=== PATIENT | female | born 1990 | race Caucasian/White ===

== ENCOUNTER 2016-08-27 01:27 | Emergency (ER) | payer OTHER ==
[~2016-08-27] VITALS: Ht 144.8 cm; Wt 52.4 kg
[~2016-08-27 01:27] MED LIST: PRENTAB26 PO
[2016-08-27 01:31] VITALS: Ht 144.8 cm; Wt 52.4 kg
--- NOTE | 2016-08-27 01:48 | EMERGENCY ROOM VISIT NOTE ---
History Report prepared by Vamshiibterri: Wyatt Oneal Under the Supervision of: Dr. Mayur Denny D.O. First contact with patient: 01:35 Chief Complaint: ED VAG BLEEDING Stated Complaint: HEMMORAGING-POST History of Present Illness The patient is a 25 year old female who presents to the Emergency Room with complaints of constant vaginal bleeding beginning today. She gave vaginally three months ago. She does not believe that she is . The patient also complains of intermittent abdominal cramping and headaches. She has been three times and has had three successful vaginal births. She was told that she had some hemorrhaging following her first and was told that she was high risk for similar bleeding. The patient denies any fevers. Source of History: patient Onset: Today Position: other (vagina) Quality: other (bleeding) Associated Symptoms: + abdominal pain, + headache, No fevers Review of Systems See HPI for pertinent positives and negatives. A total of ten systems were reviewed and were otherwise negative. Past Medical & Surgical Medical Problems: (1) ASTHMA, UNSPECIFIED, W (ACUTE) EXACERBATION (2) Precipitous delivery, delivered (current hospitalization) (3) labor (4) labor in third trimester Surgical Problems: (1) Previous section Family History No pertinent family history stated. Social History Smoking Status: Current Every Day Smoker Alcohol Use: occasionally Drug Use: none Marital Status: single Occupation Status: unemployed Current/Historical Medications Scheduled Multivit/Min/Iron/Fol Ac/Pren ( Vitamin), 1 TAB PO DAILY Allergies Coded Allergies: Sulfa Antibiotics (Verified Allergy, Unknown, Unknown reaction, 06/06/16) Physical Exam Vital Signs Date Time Temp Pulse Resp B/P Pulse Ox O2 Delivery O2 Flow Rate FiO2 08/27/16 01:31 100 18 147/78 98 Room Air Physical Exam GENERAL: Awake, alert, well-appearing, in no distress HENT: Normocephalic, atraumatic. Oropharynx unremarkable. EYES: Normal conjunctiva. Sclera non-icteric. NECK: Supple. No nuchal rigidity. FROM. No JVD. RESPIRATORY: Clear to auscultation. CARDIAC: Regular rate, normal rhythm. Extremities warm and well perfused. Pulses equal. ABDOMEN: Soft, non-distended. No tenderness to palpation. No rebound or guarding. No masses. RECTAL: Deferred. MUSCULOSKELETAL: Chest examination reveals no tenderness. The back is symmetrical on inspection without obvious abnormality. There is no CVA tenderness to palpation. No joint edema. LOWER EXTREMITIES: Calves are equal size bilaterally and non-tender. No edema. No discoloration. NEURO: Normal sensorium. No sensory or motor deficits noted. SKIN: No rash or jaundice noted. Medical Decision & Procedures Laboratory Results Test 08/27/16 00:45 Urine Test NEG (NEG) ED Course 0138: The patient was evaluated in room A10. A complete history and physical exam was performed. Medical Decision Differential diagnosis: Etiologies such as ectopic , dysfunction uterine bleeding, bleeding dyscrasia, trauma, infection, as well as others were entertained. Patient's test is negative. I suspect that this is menstrual cramps. Discussed ordered with the patient bedside will treated with nonsteroidal anti -inflammatories. Scribe Attestation The scribe's documentation has been prepared under my direction and personally reviewed by me in its entirety. I confirm that the note above accurately reflects all work, treatment, procedures, and medical decision making performed by me. Departure Information Dispostion Home / Self-Care Prescriptions Ibuprofen (Motrin) 800 Mg Tab 800 MG PO Q8H Y for Pain for 5 Days, TAB Prov: Mayur Denny, DO 08/27/16 Referrals Lali Izquierdo,Xavier.OMarietta (PCP) Patient Instructions ED Cramping Menstrual, My [facility] Additional Instructions Follow-up with her own [facility]. Take Motrin for pain and return for worsening of bleeding
[2016-08-27] MEDS ORDERED: KETOROLAC TROMETHAMINE 60 MG/2 ML VIAL IM STA (02:24)
[2016-08-27] MEDS ORDERED: IBUP-1428 PO (02:29)
[2016-08-27 02:35] VITALS: BP 142/68; PULSE 70; O2SAT 99
[2016-08-27] MEDS ORDERED: ESCI1TAB6 PO (02:37)
[2016-08-27] MEDS ORDERED: SERT50TA PO (02:37)
[2016-08-27] MEDS ORDERED: SERT25TA PO (02:37)
== END 2016-08-27 02:53 | disposition home or self-care (01) ==
LOC: C.EDB 01:28 → C.EDA 02:53
DX: N93.8 Other specified abnormal uterine and vaginal bleeding (principal); J45.909 Unspecified asthma, uncomplicated; F17.200 Nicotine dependence, unspecified, uncomplicated; Z88.2 Allergy status to sulfonamides

== ENCOUNTER 2016-10-13 06:20 | Emergency (ER) | payer OTHER ==
[~2016-10-13] VITALS: Ht 144.8 cm; Wt 50.0 kg
[~2016-10-13 06:20] MED LIST changes: +ESCI1TAB6 PO; -PRENTAB26 PO; +SERT25TA PO
[2016-10-13 06:23] VITALS: Ht 144.8 cm; Wt 50.0 kg
[2016-10-13] MEDS ORDERED: ACETAMINOPHEN 500 MG TAB PO STA (07:15)
--- NOTE | 2016-10-13 07:19 | EMERGENCY ROOM VISIT NOTE ---
History Report prepared by Amada: Louis Pedro Under the Supervision of: Dr. Fely Chin D.O. First contact with patient: 06:45 Chief Complaint: BACK PAIN Stated Complaint: SEVERE BACK PAIN/TROUBLE BREATHING History of Present Illness The patient is a 25 year old female who presents to the Emergency Room with complaints of persistent back pain beginning about 2 days ago. She also complains of chest pain with shortness of breath, and denies any cough. She notes that her pain began in her back. The patient reports having this pain before in the past but did not see a doctor for these symptoms. She states her back pain is relieved when her friend cracks her back. She denies any injury or trauma to her back, or any urinary symptoms. She has not taken anything for her pain. The patient also complains of ongoing abdominal pain, but denies any pain currently. She notes she was here before for this abdominal pain about 1 month ago and "received a shot and was sent home." She locates this abdominal pain "all over" in her stomach and "between her ribs." She notes this abdominal pain has been reoccurring since the initial onset 1 month ago. The patient indicates that she is currently on her period. She admits to previously using meth and was "on a binge", and states she stopped yesterday. She notes she is currently tired from being awake from the meth. She is currently unsure if she wishes to seek rehab for meth use. The patient denies drinking alcohol, but admits to smoking. She reports that she recently gave . Source of History: patient Onset: about 2 days ago Position: back Quality: other (back pain) Timing: other (persistent) Modifying Factors (Relieving): other ("friend cracking back") Associated Symptoms: + SOB, + abdominal pain, + chest pain, + fatigue, No urinary symptoms Review of Systems See HPI for pertinent positives & negatives. A total of 10 systems reviewed and were otherwise negative. Past Medical & Surgical Medical Problems: (1) ASTHMA, UNSPECIFIED, W (ACUTE) EXACERBATION (2) Precipitous delivery, delivered (current hospitalization) (3) labor (4) labor in third trimester Surgical Problems: (1) Previous section Family History No pertinent family history stated. Social History Smoking Status: Never Smoker Smokeless Tobacco Use: No Alcohol Use: none Drug Use: other (meth) Marital Status: single Occupation Status: unemployed Current/Historical Medications Scheduled Escitalopram Oxalate (Lexapro), 5 MG PO DAILY Sertraline (Zoloft), 25 MG PO DAILY Allergies Coded Allergies: Sulfa Antibiotics (Verified Allergy, Unknown, Unknown reaction, 10/13/16) Physical Exam Vital Signs Date Time Temp Pulse Resp B/P Pulse Ox O2 Delivery O2 Flow Rate FiO2 10/13/16 11:55 118 18 124/87 96 Room Air 10/13/16 10:08 36.6 97 20 104/86 98 Room Air 10/13/16 08:38 36.7 118 18 120/86 99 10/13/16 07:30 80 18 96 10/13/16 06:23 36.3 83 18 130/89 94 Room Air Physical Exam HEENT: Head - normocephalic and atraumatic Pupils are equal, round, and reactive to light. Extraocular eye muscles are intact, and sclera are anicteric. Nose - moist nasal mucosa without discharge. Excoriated areas to the bridge of the nose and right cheeks that patient continues to pick at. Mouth - dry buccal mucosa. Oropharynx is nonerythematous and there is no tonsillar exudate or edema noted. Neck: Supple; no JVD, nuchal rigidity, cervical lymphadenopathy. Heart: Regular rate and rhythm. There is a normal S1 and S2 with no murmurs, clicks, or gallops appreciated. Lungs: Clear to auscultation bilaterally with no wheezes, rales, or rhonchi. Abdomen: Soft. Epigastric pain to palpation. Nondistended, with good bowel sounds. There are no palpable pulsatile masses or hepatosplenomegaly. There is no guarding, rigidity, or rebound noted. Extremities: Track nieves in both antecubital fossa. Areas of ecchymosis on both arms. Contusions over the lower legs. There are easily palpable peripheral pulses. Skin: warm and dry with good turgor and no rashes. Multiple tattoos. Medical Decision & Procedures ER Provider Diagnostic Interpretation: Radiology results as stated below per my review and the radiologist's interpretation: CHEST 2 VIEWS ROUTINE FINDINGS: Lung volumes are normal. There is no pneumothorax or pleural effusion. Cardiac size is normal. Mediastinal contours are normal. There is no evidence of pulmonary edema. IMPRESSION: No acute cardiopulmonary findings. Electronically signed by: Sanjiv Rico M.D. 10/13/2016 7:54 AM Dictated Date/Time: 10/13/2016 7:53 AM KUB FINDINGS: Pelvic calcifications likely reflect phleboliths. A few prominent loops of small bowel are noted without convincing evidence for a bowel obstruction. There is a moderate amount of stool within the colon. IMPRESSION: A few prominent loops of small bowel without convincing evidence for a bowel obstruction. Electronically signed by: Sanjiv Rico M.D. 10/13/2016 7:55 AM Dictated Date/Time: 10/13/2016 7:[address] OF THE THORACIC SPINE WITH CONTRAST FINDINGS: Alignment of the thoracic spine is anatomic. Vertebral body heights are maintained. No fracture or suspicious lesion is identified. The central canal and neural foramen are suboptimally assessed by CT. No epidural fluid collection is identified by CT. There is mild disc bulge with osteophyte formation at the T11-T12 level that results in minimal narrowing of the central canal. The neural foramen are patent. Paravertebral soft tissues are unremarkable. No consolidation is identified within visualized portions of the lungs. IMPRESSION: 1. No epidural fluid collection identified by CT. If persistent clinical concern for epidural abscess or discitis, an MRI of the thoracic spine with and without contrast could be obtained given increased sensitivity. 2. No thoracic spine fracture or subluxation. 3. Mild degenerative disc disease at T11-T12 with mild disc bulge. Electronically signed by: Sanjiv Rico M.D. 10/13/2016 11:17 AM Dictated Date/Time: 10/13/2016 11:05 AM Laboratory Results 10/13/16 10:20 Red Blood Count 4.61, Mean Corpuscular Volume 90.5, Mean Corpuscular Hemoglobin 30.4, Mean Corpuscular Hemoglobin Concent 33.6, Mean Platelet Volume 9.2, Neutrophils (%) (Auto) 80.4, Lymphocytes (%) (Auto) 15.3, Monocytes (%) (Auto) 2.8, Eosinophils (%) (Auto) 0.9, Basophils (%) (Auto) 0.3, Neutrophils # (Auto) 14.76, Lymphocytes # (Auto) 2.80, Monocytes # (Auto) 0.52, Eosinophils # (Auto) 0.16, Basophils # (Auto) 0.05 10/13/16 07:27 Test 10/13/16 07:27 10/13/16 09:15 10/13/16 10:20 10/13/16 10:28 Anion Gap 6.0 mmol/L (3-11) Est Creatinine Clear Calc Drug Dose 75.8 ml/min Estimated GFR () 123.3 Estimated GFR (Non- 106.4 BUN/Creatinine Ratio 16.9 (10-20) Calcium Level 10.8 mg/dl (8.5-10.1) Total Bilirubin 0.2 mg/dl (0.2-1) Direct Bilirubin < 0.1 mg/dl (0-0.2) Aspartate Amino Transf (AST/SGOT) 14 U/L (15-37) Alanine Aminotransferase (ALT/SGPT) 68 U/L (12-78) Alkaline Phosphatase 157 U/L (45-117) Troponin I < 0.015 ng/ml (0-0.045) Total Protein 7.8 gm/dl (6.4-8.2) Albumin 4.1 gm/dl (3.4-5.0) Lipase 115 U/L (73-393) Urine Color YELLOW Urine Appearance TURBID (CLEAR) Urine pH 8.0 (4.5-7.5) Urine Specific [place] 1.028 (1.000-1.030) Urine Protein NEG (NEG) Urine Glucose (UA) NEG (NEG) Urine Ketones NEG (NEG) Urine Occult Blood NEG (NEG) Urine Nitrite NEG (NEG) Urine Bilirubin NEG (NEG) Urine Urobilinogen NEG (NEG) Urine Leukocyte Esterase TRACE (NEG) Urine WBC (Auto) 1-5 /hpf (0-5) Urine RBC (Auto) 0-4 /hpf (0-4) Urine Hyaline Casts (Auto) 1-5 /lpf (0-5) Urine Epithelial Cells (Auto) >30 /lpf (0-5) Urine Bacteria (Auto) NEG (NEG) Urine Test NEG (NEG) Urine Opiates Screen POS (NEG) Urine Methadone, Qualitative NEG (NEG) Urine Barbiturates NEG (NEG) Urine Phencyclidine (PCP) Level NEG (NEG) Ur Amphetamine/Methamphetamine POS (NEG) MDMA (Ecstasy) Screen NEG (NEG) Urine Benzodiazepines Screen NEG (NEG) Urine Cocaine Metabolite NEG (NEG) Urine Marijuana (THC) POS (NEG) White Blood Count 18.34 K/uL (4.8-10.8) Red Blood Count 4.61 M/uL (4.2-5.4) Hemoglobin 14.0 g/dL (12.0-16.0) Hematocrit 41.7 % (37-47) Mean Corpuscular Volume 90.5 fL (80-100) Mean Corpuscular Hemoglobin 30.4 pg (25-34) Mean Corpuscular Hemoglobin Concent 33.6 g/dl (32-36) Platelet Count 406 K/uL (130-400) Mean Platelet Volume 9.2 fL (7.4-10.4) Neutrophils (%) (Auto) 80.4 % Lymphocytes (%) (Auto) 15.3 % Monocytes (%) (Auto) 2.8 % Eosinophils (%) (Auto) 0.9 % Basophils (%) (Auto) 0.3 % Neutrophils # (Auto) 14.76 K/uL (1.4-6.5) Lymphocytes # (Auto) 2.80 K/uL (1.2-3.4) Monocytes # (Auto) 0.52 K/uL (0.11-0.59) Eosinophils # (Auto) 0.16 K/uL (0-0.5) Basophils # (Auto) 0.05 K/uL (0-0.2) RDW Standard Deviation 46.1 fL (36.4-46.3) RDW Coefficient of Variation 13.9 % (11.5-14.5) Immature Granulocyte % (Auto) 0.3 % Immature Granulocyte # (Auto) 0.05 K/uL (0.00-0.02) Erythrocyte Sedimentation Rate 9 mm/hr (0-21) C-Reactive Protein < 0.29 mg/dl (0-0.29) Bedside Lactic Acid Venous 1.41 mmol/L (0.90-1.70) Laboratory results per my review. Medications Administered Medications (Trade) Dose Ordered Sig/Juan Route Start Time Stop Time Status Last Admin Dose Admin Acetaminophen (Tylenol Tab) 1,000 mg NOW STAT PO 10/13/16 07:15 10/13/16 07:18 DC 10/13/16 07:22 1,000 MG Procedure Medications Ordered: 714: Ordered Acetaminophen 1,000 mg PO. ED Course 658: Past medical records reviewed. The patient was evaluated in room B2. A complete history and physical exam was performed. Laboratory studies were drawn as above. X-rays were obtained as described above. 0715: Ordered Acetaminophen 1,000 mg PO. 0830: The family service caseworker will talk with the patient about rehab. 0843: The patient is asleep. 0900: The family service caseworker reports that the patient does not want inpatient rehab at this time, but would prefer outpatient options. 0953: I reassessed the patient. She notes her chest pain and abdominal pain have resolved, but her back pain between her shoulder blades has worsened. She is sweating and tachycardic. We will start and IV and send her for a thoracic spine CT with contrast to look for epidural abscess. Her heart rate was 104 in the room. 1030: The patient is being belligerent, threatening to leave, and says we "are doing nothing for her" and "won't feed her." 1043: The patient is refusing her second blood culture. 1159: The patient is more awake now and sitting up. She notes her back pain is gone, and she feels much better. She is anxious to go. I gave her the results of her toxicology screen. 1200: Upon reevaluation, the patient is doing well. I discussed findings and results with the patient. She verbalized agreement of the treatment plan. The patient was discharged home. Medical Decision The patient is a 25 year old female who presents to the Emergency Room with complaints of persistent back pain beginning about 2 days ago. Differential Diagnoses: Drug overdose, sleep deprivation, pneumomediastinum, pancreatitis, colitis, and pneumonia. Laboratory Interpretations: WBC of 17.6; stable H&H; glucose is 102; negative troponin and lipase; alkaline phosphatase is mildly elevated at 157; LFTs are normal; is negative; leukocyte esterase is trace and greater than 30 epithelial cells; lactate is 1.41; 2nd CBC: WBC up to 18.3 with 80% neutrophils ; C-reactive protein is negative; sed rate is normal; toxicology is positive for opioids, meth, and marijuana. This is a 25 to female patient presents to the emergency department with epigastric abdominal pain and midback pain. She does have a history of IV drug abuse. She had only admitted to meth abuse but her tox screen was positive for opiates well. This was explained to the patient was so lethargic while here in the emergency department. I became more concerned about the patient as she became tachycardic and continued to complain of pain in her back. I considered the possibility of epidural abscess. CT scan was negative and the patient states that her pain has now resolved despite the fact that her white blood cell count increased 18,000 while here in the emergency department. We talked about the possibility of valvular disease as a result of IV drug abuse. The patient did not think this could possibly be the source of her chest discomfort. Cardiac enzymes were negative. I spent a great of time talking to the patient her friend about the situation. She was strongly encouraged to return to the emergency department immediately if she developed a fever or worsening symptoms. She was offered rehabilitation for IV drug abuse but declined at this time. Impression Primary Impression: Mid back pain Additional Impression: IV drug abuse Scribe Attestation The scribe's documentation has been prepared under my direction and personally reviewed by me in its entirety. I confirm that the note above accurately reflects all work, treatment, procedures, and medical decision making performed by me. Departure Information Dispostion Home / Self-Care Referrals Lali Izquierdo D.O. (PCP) Patient Instructions My [facility] Additional Instructions If you develop a fever or worsening back pain or belly pain, return to the ER. Stop abusing meth and other drugs. Follow up with [facility] Drug and Alcohol Problem Qualifiers
[2016-10-13 07:47] LABS: BASO % 0.3 %; BASO ABS # 0.06 K/uL (0-0.2); COMPLETE YES; EOS % 0.9 %; HEMATOCRIT 44.8 % (37-47); IG% 0.3 %; LYMPH % 12.4 %; LYMPH ABS # 2.19 K/uL (1.2-3.4); MEAN CELL VOLUME 91.4 fL (80-100); MEAN CORPUSCULAR HGB CONC 32.8 g/dl (32-36); MEAN PLATELET VOLUME 9.3 fL (7.4-10.4); MONO % 2.3 %; NEUT % 83.8 %; PLATELET COUNT 398 K/uL (130-400); WHITE BLOOD COUNT 17.61 K/uL (4.8-10.8)
--- NOTE | 2016-10-13 07:55 | DIAGNOSTIC IMAGING REPORT ---
CHEST 2 VIEWS ROUTINE CLINICAL HISTORY: Mid chest and back pain. COMPARISON STUDY: Chest radiograph October 14, 2010. FINDINGS: Lung volumes are normal. There is no pneumothorax or pleural effusion. Cardiac size is normal. Mediastinal contours are normal. There is no evidence of pulmonary edema. IMPRESSION: No acute cardiopulmonary findings. Electronically signed by: Sanjiv Rico M.D. 10/13/2016 7:54 AM Dictated Date/Time: 10/13/2016 7:53 AM
--- NOTE | 2016-10-13 07:56 | DIAGNOSTIC IMAGING REPORT ---
KUB CLINICAL HISTORY: Epigastric pain. COMPARISON STUDY: None. FINDINGS: Pelvic calcifications likely reflect phleboliths. A few prominent loops of small bowel are noted without convincing evidence for a bowel obstruction. There is a moderate amount of stool within the colon. IMPRESSION: A few prominent loops of small bowel without convincing evidence for a bowel obstruction. Electronically signed by: Sanjiv Rico M.D. 10/13/2016 7:55 AM Dictated Date/Time: 10/13/2016 7:54 AM
[2016-10-13 08:08] LABS: ALT/SGPT 68 U/L (12-78); BLOOD UREA NITROGEN 13 mg/dl (7-18); BUN/CREATININE RATIO 16.9 (10-20); CALCIUM 10.8 mg/dl (8.5-10.1); CARBON DIOXIDE 29 mmol/L (21-32); CHLORIDE 103 mmol/L (98-107); CREATININE 0.78 mg/dl (0.60-1.20); GLUCOSE 102 mg/dl (70-99); POTASSIUM 4.4 mmol/L (3.5-5.1); SODIUM 138 mmol/L (136-145)
[2016-10-13 08:13] LABS: ALKALINE PHOSPHATASE 157 U/L (45-117); AST/SGOT 14 U/L (15-37)
[2016-10-13 09:34] LABS: URINE APPEARANCE TURBID (CLEAR); URINE BILIRUBIN NEG (NEG); URINE COLOR YELLOW; URINE EPITHELIAL CELL AUTO >30 /lpf (0-5); URINE NITRITE NEG (NEG); URINE SPECIFIC GRAVITY 1.028 (1.000-1.030); UROBILINOGEN NEG (NEG)
[2016-10-13 09:35] LABS: MANUAL MICROSCOPIC REQUIRED? NO; REVIEW REQ? NO
[2016-10-13 10:08] VITALS: TEMP 36.6
[2016-10-13] MEDS ORDERED: OPTIRAY 320 IV PRN (10:30)
[2016-10-13 10:40] LABS: BASO % 0.3 %; BASO ABS # 0.05 K/uL (0-0.2); COMPLETE YES; EOS % 0.9 %; HEMATOCRIT 41.7 % (37-47); IG% 0.3 %; LYMPH % 15.3 %; MEAN CELL VOLUME 90.5 fL (80-100); MEAN CORPUSCULAR HEMOGLOBIN 30.4 pg (25-34); MEAN CORPUSCULAR HGB CONC 33.6 g/dl (32-36); MEAN PLATELET VOLUME 9.2 fL (7.4-10.4); MONO % 2.8 %; NEUT % 80.4 %; PLATELET COUNT 406 K/uL (130-400); RED BLOOD COUNT 4.61 M/uL (4.2-5.4); WHITE BLOOD COUNT 18.34 K/uL (4.8-10.8)
[2016-10-13 10:56] LABS: BENZODIAZEPINE, URINE NEG (NEG); COCAINE,URINE NEG (NEG); PHENCYCLIDINE, URINE NEG (NEG)
--- NOTE | 2016-10-13 11:19 | DIAGNOSTIC IMAGING REPORT ---
CT OF THE THORACIC SPINE WITH CONTRAST CT DOSE: 538.57 mGy.cm CLINICAL HISTORY: Severe back pain. IV drug user. Evaluate for epidural abscess. TECHNIQUE: Axial images of the thoracic spine were obtained following intravenous injection of 94 cc Optiray 320 IV. Sagittal and coronal reconstructions were viewed. COMPARISON STUDY: Chest CT October 11, 2010. FINDINGS: Alignment of the thoracic spine is anatomic. Vertebral body heights are maintained. No fracture or suspicious lesion is identified. The central canal and neural foramen are suboptimally assessed by CT. No epidural fluid collection is identified by CT. There is mild disc bulge with osteophyte formation at the T11-T12 level that results in minimal narrowing of the central canal. The neural foramen are patent. Paravertebral soft tissues are unremarkable. No consolidation is identified within visualized portions of the lungs. IMPRESSION: 1. No epidural fluid collection identified by CT. If persistent clinical concern for epidural abscess or discitis, an MRI of the thoracic spine with and without contrast could be obtained given increased sensitivity. 2. No thoracic spine fracture or subluxation. 3. Mild degenerative disc disease at T11-T12 with mild disc bulge. Electronically signed by: Sanjiv Rico M.D. 10/13/2016 11:17 AM Dictated Date/Time: 10/13/2016 11:05 AM
[2016-10-13 11:55] VITALS: BP 124/87; PULSE 118; O2SAT 96
[2016-10-16 14:56] LABS: COD UR NEGATIVE NG/ML (CUTOFF=50); HYDROCOD UR NEGATIVE NG/ML (CUTOFF=50); HYDROMOR UR NEGATIVE NG/ML (CUTOFF=50); MORPHINE UR 404 NG/ML (CUTOFF=50); NORHYDROCODONE CONF UR NEGATIVE NG/ML (CUTOFF=50); OXYMORPH UR NEGATIVE NG/ML (CUTOFF=50)
== END 2016-10-13 12:15 | disposition home or self-care (01) ==
LOC: C.EDB 06:21
DX: M54.6 Pain in thoracic spine (principal); F15.10 Other stimulant abuse, uncomplicated; J45.909 Unspecified asthma, uncomplicated; Z98.891 History of uterine scar from previous surgery

== ENCOUNTER 2016-10-14 21:48 | Observation (INO) | payer OTHER ==
[~2016-10-14] VITALS: Ht 144.8 cm; Wt 50.0 kg
[2016-10-14] MEDS ORDERED: SODIUM CHLORIDE 0.9% 1000ML 1,000 ML IV STA (23:02)
[2016-10-14] MEDS ORDERED: MoRPHine SULFATE 2 MG/ML CARP IV STA (23:02)
[2016-10-14] MEDS ORDERED: MoRPHine SULFATE 4 MG/ML 1 ML CARP\\VIAL IV STA (23:50)
[2016-10-14] MEDS ORDERED: ONDANSETRON INJ 2 MG/ML 2 ML VIAL IV STA (23:53)
[2016-10-15] VITALS (9 sets, daily range): BP systolic 129–153; BP diastolic 77–97; PULSE 61–110; TEMP 36.2–36.9; O2SAT 94–98; Ht 144.8 cm; Wt 50.0 kg
[2016-10-15] MEDS ORDERED: OPTIRAY 320 IV PRN
[2016-10-15 00:26] LABS: BASO % 0.3 %; BASO ABS # 0.04 K/uL (0-0.2); COMPLETE YES; HEMATOCRIT 38.9 % (37-47); IG% 0.3 %; LYMPH % 14.2 %; LYMPH ABS # 2.07 K/uL (1.2-3.4); MEAN CORPUSCULAR HEMOGLOBIN 30.5 pg (25-34); MEAN CORPUSCULAR HGB CONC 33.2 g/dl (32-36); MEAN PLATELET VOLUME 9.2 fL (7.4-10.4); MONO % 4.2 %; PLATELET COUNT 342 K/uL (130-400); RED BLOOD COUNT 4.23 M/uL (4.2-5.4); WHITE BLOOD COUNT 14.54 K/uL (4.8-10.8)
[2016-10-15] MEDS ORDERED: HYDROmorphone INJ 0.5 MG/0.5 ML SYR IV STA (00:33)
[2016-10-15 00:52] LABS: ALB/GLOB RATIO 1.1 (0.9-2); BUN/CREATININE RATIO 14.5 (10-20); CALCIUM 9.3 mg/dl (8.5-10.1); CREATININE 0.68 mg/dl (0.60-1.20); POTASSIUM 3.5 mmol/L (3.5-5.1)
[2016-10-15] MEDS ORDERED: NURSING VERBAL MED ORDER ONE (02:30)
[2016-10-15] MEDS ORDERED: IV FLUIDS COMPLETED PRN (03:00)
--- NOTE | 2016-10-15 03:03 | EMERGENCY ROOM VISIT NOTE ---
History First contact with patient: 22:50 Chief Complaint: ABDOMINAL PAIN Stated Complaint: SEVERE ABDOMINAL PAIN Nursing Triage Summary: pt c/o abd pain History of Present Illness The patient is a 25 year old female who presents to the Emergency Room with complaints of severe epigastric abdominal pain which began approximately 1.5 hours ago. She reports associated nausea and vomiting. She has had episodes of similar abdominal pain before but has not been evaluated for it. She rates her current discomfort a 10/10. She denies any urinary symptoms, changes in bowel movements, chest pain or shortness of breath. She denies any previous abdominal surgeries. Pain is worse with movement and after eating. The patient reports a history of meth use. She denies any other drug abuse. She reports she was seen here 2 days ago for thoracic back pain, but states that this has resolved. Review of Systems A complete 10 point review of systems was reviewed with the patient with pertinent positives and negatives as per history of present illness. All else were negative. Past Medical/Surgical History Medical Problems: (1) ASTHMA, UNSPECIFIED, W (ACUTE) EXACERBATION (2) Precipitous delivery, delivered (current hospitalization) (3) labor (4) labor in third trimester Surgical Problems: (1) Previous section Social History Smoking Status: Current Every Day Smoker Alcohol Use: none Drug Use: other Marital Status: single Occupation Status: unemployed Current/Historical Medications Scheduled Escitalopram Oxalate (Lexapro), 5 MG PO DAILY Sertraline (Zoloft), 25 MG PO DAILY Allergies Coded Allergies: Sulfa Antibiotics (Verified Allergy, Unknown, Unknown reaction, 10/14/16) Physical Exam Vital Signs Date Time Temp Pulse Resp B/P Pulse Ox O2 Delivery O2 Flow Rate FiO2 10/15/16 02:15 59 18 141/91 98 Room Air 10/15/16 00:34 78 18 133/93 96 Room Air 10/15/16 00:06 36.6 78 20 156/98 96 Room Air Physical Exam VITALS: Vitals are noted on the nurse's note and reviewed by myself. Vital signs stable. GENERAL: This is a 25-year-old female, in no acute distress, nondiaphoretic, well-developed well-nourished. SKIN: Capillary reflex less than 2 seconds. HEART: Regular rate and rhythm without murmurs gallops or rubs. LUNGS: Clear to auscultation bilaterally without wheezes, rales or rhonchi. ABDOMEN: Positive bowel sounds x 4. Tenderness over the epigastric region, left upper quadrant and right upper quadrant with mild guarding. No rebound tenderness. NEURO: Patient was alert and oriented to person place and time. Medical Decision & Procedures ER Provider Diagnostic Interpretation: CT ABDOMEN & PELVIS: Gallbladder is distended with probably small stones or sludge and question adjacent fat stranding. Correlate with symptoms for cholecystitis and consider right upper quadrant ultrasound for further evaluation. Periportal edema. Appendix is normal. Small amount of free fluid in the pelvis. No free air. No evidence of bowel obstruction. Pancreas, spleen, adrenals, and kidneys are unremarkable. Radiologist: Kumar Webb MD Laboratory Results 10/15/16 00:05 Red Blood Count 4.23, Mean Corpuscular Volume 92.0, Mean Corpuscular Hemoglobin 30.5, Mean Corpuscular Hemoglobin Concent 33.2, Mean Platelet Volume 9.2, Neutrophils (%) (Auto) 80.0, Lymphocytes (%) (Auto) 14.2, Monocytes (%) (Auto) 4.2, Eosinophils (%) (Auto) 1.0, Basophils (%) (Auto) 0.3, Neutrophils # (Auto) 11.63, Lymphocytes # (Auto) 2.07, Monocytes # (Auto) 0.61, Eosinophils # (Auto) 0.14, Basophils # (Auto) 0.04 10/15/16 00:05 Test 10/15/16 00:05 White Blood Count 14.54 K/uL (4.8-10.8) Red Blood Count 4.23 M/uL (4.2-5.4) Hemoglobin 12.9 g/dL (12.0-16.0) Hematocrit 38.9 % (37-47) Mean Corpuscular Volume 92.0 fL (80-100) Mean Corpuscular Hemoglobin 30.5 pg (25-34) Mean Corpuscular Hemoglobin Concent 33.2 g/dl (32-36) Platelet Count 342 K/uL (130-400) Mean Platelet Volume 9.2 fL (7.4-10.4) Neutrophils (%) (Auto) 80.0 % Lymphocytes (%) (Auto) 14.2 % Monocytes (%) (Auto) 4.2 % Eosinophils (%) (Auto) 1.0 % Basophils (%) (Auto) 0.3 % Neutrophils # (Auto) 11.63 K/uL (1.4-6.5) Lymphocytes # (Auto) 2.07 K/uL (1.2-3.4) Monocytes # (Auto) 0.61 K/uL (0.11-0.59) Eosinophils # (Auto) 0.14 K/uL (0-0.5) Basophils # (Auto) 0.04 K/uL (0-0.2) RDW Standard Deviation 48.1 fL (36.4-46.3) RDW Coefficient of Variation 14.2 % (11.5-14.5) Immature Granulocyte % (Auto) 0.3 % Immature Granulocyte # (Auto) 0.05 K/uL (0.00-0.02) Anion Gap 8.0 mmol/L (3-11) Est Creatinine Clear Calc Drug Dose 86.9 ml/min Estimated GFR () 141.9 Estimated GFR (Non- 122.4 BUN/Creatinine Ratio 14.5 (10-20) Calcium Level 9.3 mg/dl (8.5-10.1) Total Bilirubin 0.1 mg/dl (0.2-1) Aspartate Amino Transf (AST/SGOT) 14 U/L (15-37) Alanine Aminotransferase (ALT/SGPT) 51 U/L (12-78) Alkaline Phosphatase 136 U/L (45-117) Total Protein 6.9 gm/dl (6.4-8.2) Albumin 3.6 gm/dl (3.4-5.0) Globulin 3.3 gm/dl (2.5-4.0) Albumin/Globulin Ratio 1.1 (0.9-2) Lipase 90 U/L (73-393) Medications Administered Medications (Trade) Dose Ordered Sig/Juan Route Start Time Stop Time Status Last Admin Dose Admin Morphine Sulfate 2 mg 2 mg NOW STAT IV 10/14/16 23:02 10/14/16 23:07 DC 10/14/16 23:18 2 MG Sodium Chloride (Nss 1000ml) 1,000 ml @ 999 mls/hr Q1H1M STAT IV 10/14/16 23:02 10/15/16 00:02 DC 10/14/16 23:18 999 MLS/HR Morphine Sulfate (MoRPHine SULFATE INJ) 4 mg NOW STAT IV 10/14/16 23:50 10/14/16 23:51 DC 10/15/16 00:03 4 MG Ondansetron HCl (Zofran Inj) 4 mg NOW STAT IV 10/14/16 23:53 10/14/16 23:54 DC 10/15/16 00:03 4 MG Hydromorphone HCl (Dilaudid Inj) 0.5 mg NOW STAT IV 10/15/16 00:33 10/15/16 00:35 DC 10/15/16 00:43 0.5 MG ED Course The patient was evaluated as above. Labs were drawn and IV access was obtained. Patient was medicated with 2 mg morphine IV. She was hydrated with 1 L normal saline solution. Patient had continued pain and was given an additional [address] of the abdomen and pelvis was performed and read by stat rad as above. Patient was reevaluated and given 0.5 mg Dilaudid IV. Findings were discussed with the patient. Case was discussed with Dr. Hernandez, the on-call general surgeon. He agreed to admit the patient for evaluation and surgical care. Medical Decision Differential diagnosis includes cholecystitis, peptic ulcer disease, GERD, perforated viscus, colitis, gastroenteritis, appendicitis, pancreatitis, hepatitis, among others. The patient is a 25-year-old female who presents today complaining of epigastric abdominal pain. Labs revealed a leukocytosis of 14,000. No concerning anemia or electrolyte abnormalities. Alkaline phosphatase is mildly elevated. Bilirubin is within normal limits. CT shows findings suggestive of acute cholecystitis. Case was discussed with the general surgeon who will admit the patient. Please see his note for operative records and patient disposition. Impression Primary Impression: Acute cholecystitis Departure Information Dispostion Being Evaluated By Surgeon Referrals Lali Izquierdo D.O. (PCP) Patient Instructions [facility]
[2016-10-15] MEDS ORDERED: ONDANSETRON INJ 2 MG/ML 2 ML VIAL IV PRN ×2 (03:30→08:15)
[2016-10-15] MEDS: CIPROFLOXACIN 400MG / D5W IV SCH ×2 (03:49→15:49)
[2016-10-15] MEDS: METRONIDAZOLE 500MG / NSS IV SCH ×2 (03:49→12:07)
--- NOTE | 2016-10-15 06:49 | DIAGNOSTIC IMAGING REPORT ---
ABDOMEN AND PELVIS CT WITH IV CONTRAST CT DOSE: 442.82 mGy.cm HISTORY: Pain epigastric pain/ vomiting TECHNIQUE: Multiaxial CT images of the abdomen and pelvis were performed following the use of intravenous contrast. COMPARISON STUDY: None. FINDINGS: Lung bases are clear. Liver spleen and pancreas appear unremarkable. Probable mild edematous change about the gallbladder wall. Suggestion of slight periportal edema most likely secondary to the injection phase. Bowel pattern is nonobstructive. Normal appendix. No significant abdominal or pelvic adenopathy. Small bilateral ovarian follicular cysts. IMPRESSION: 1. Potential gallbladder wall edematous change the trace amount of pericholecystic fluid. 2. Right upper quadrant ultrasonography is suggested. 3. Small bilateral ovarian follicular cysts. Electronically signed by: Farzad Koo M.D. 10/15/2016 6:47 AM Dictated Date/Time: 10/15/2016 6:45 AM
[2016-10-15] MEDS ORDERED: DEXAMETHASONE SOD INJ 4 MG/ML VIAL ONE (07:30)
[2016-10-15] MEDS ORDERED: ONDANSETRON INJ 2 MG/ML 2 ML VIAL ONE (07:30)
[2016-10-15] MEDS ORDERED: PROPOFOL IV EMULSION 10 MG/ML 20 ML VIAL IV ONE ×2 (07:30→09:18)
[2016-10-15] MEDS ORDERED: GLYCOPYRROLATE INJ 0.2 MG/ML VIAL ONE ×2 (07:30→08:34)
[2016-10-15] MEDS ORDERED: NEOSTIGMINE METHYLSULFATE 5 MG/5 ML SYR ONE (07:30)
[2016-10-15] MEDS ORDERED: ROCURONIUM BROMIDE 10 MG/ML 5 ML VIAL ONE (07:30)
[2016-10-15] MEDS ORDERED: LIDOCAINE HCL 2% 2 ML VIAL (20MG/ML) ONE (07:30)
[2016-10-15] MEDS ORDERED: MIDAZOLAM HCL 1 MG/ML 2ML VIAL ONE (07:31)
[2016-10-15] MEDS ORDERED: FENTANYL CITRATE INJ 50 MCG/1 ML 2 ML VIAL ONE (07:31)
[2016-10-15] MEDS ORDERED: BUPIVACAINE/EPINEPHRINE 0.5% MPF 1:200,000 30 ML VIAL ONE (07:38)
--- NOTE | 2016-10-15 07:41 | History and Physical ---
History & Physical Date & Time of Service: October 15, 2016 at 07:29 Chief Complaint: Cholecystitis Primary Care Physician: Lali Izquierdo D.O. History of Present Illness 25 y/o female seen in the ED last night for epigastric pain, nausea and vomiting. This was her second ED visit in the past 3 days, the first was for upper back pain. Initial work-up was negative although her WBC count was 18, 000. Continues to complain of abdominal pain this morning. Has history of meth use. Mother had cholecystectomy. Past Medical/Surgical History Medical Problems: (1) ASTHMA, UNSPECIFIED, W (ACUTE) EXACERBATION Status: Chronic Surgical history: Family History FH: cholecystectomy Social History Smoking Status: Current Every Day Smoker Drug Use: other Marital Status: single Housing status: lives with family Occupational Status: unemployed Immunizations History of Influenza Vaccine: Yes Influenza Vaccine Date: May 31, 2013 History of Tetanus Vaccine?: UTD Multi-Drug Resistant Organisms History of MDRO: No Allergies Coded Allergies: Sulfa Antibiotics (Verified Allergy, Unknown, Unknown reaction, 10/14/16) Home Medications Scheduled Escitalopram Oxalate (Lexapro), 5 MG PO DAILY Sertraline (Zoloft), 25 MG PO DAILY Review of Systems Constitutional: No chills, No fever Respiratory: + problem reported (has not used inhaler in years), No cough, No dyspnea on exertion, No shortness of breath Abdomen: + nausea, + pain, + vomiting Physical Exam Vital Signs Date Time Temp Pulse Resp B/P Pulse Ox O2 Delivery O2 Flow Rate FiO2 10/15/16 06:53 36.9 92 20 150/97 95 Room Air 10/15/16 03:10 Room Air 10/15/16 03:09 36.5 61 16 150/95 98 Room Air 10/15/16 02:52 62 18 138/82 96 10/15/16 02:15 59 18 141/91 98 Room Air 10/15/16 00:34 78 18 133/93 96 Room Air 10/15/16 00:06 36.6 78 20 156/98 96 Room Air General Appearance: + moderate distress, + thin Respiratory/Chest: lungs clear Cardiovascular: regular rate, rhythm Abdomen/GI: soft, + tenderness (RUQ) Neurologic/Psych: alert Diagnostics Laboratory Results Results Past 24 Hours Test 10/15/16 00:05 Range/Units White Blood Count 14.54 4.8-10.8 K/uL Red Blood Count 4.23 4.2-5.4 M/uL Hemoglobin 12.9 12.0-16.0 g/dL Hematocrit 38.9 37-47 % Mean Corpuscular Volume 92.0 80-100 fL Mean Corpuscular Hemoglobin 30.5 25-34 pg Mean Corpuscular Hemoglobin Concent 33.2 32-36 g/dl Platelet Count 342 130-400 K/uL Mean Platelet Volume 9.2 7.4-10.4 fL Neutrophils (%) (Auto) 80.0 % Lymphocytes (%) (Auto) 14.2 % Monocytes (%) (Auto) 4.2 % Eosinophils (%) (Auto) 1.0 % Basophils (%) (Auto) 0.3 % Neutrophils # (Auto) 11.63 1.4-6.5 K/uL Lymphocytes # (Auto) 2.07 1.2-3.4 K/uL Monocytes # (Auto) 0.61 0.11-0.59 K/uL Eosinophils # (Auto) 0.14 0-0.5 K/uL Basophils # (Auto) 0.04 0-0.2 K/uL RDW Standard Deviation 48.1 36.4-46.3 fL RDW Coefficient of Variation 14.2 11.5-14.5 % Immature Granulocyte % (Auto) 0.3 % Immature Granulocyte # (Auto) 0.05 0.00-0.02 K/uL Sodium Level 141 136-145 mmol/L Potassium Level 3.5 3.5-5.1 mmol/L Chloride Level 105 98-107 mmol/L Carbon Dioxide Level 28 21-32 mmol/L Anion Gap 8.0 3-11 mmol/L Blood Urea Nitrogen 10 7-18 mg/dl Creatinine 0.68 0.60-1.20 mg/dl Est Creatinine Clear Calc Drug Dose 86.9 ml/min Estimated GFR () 141.9 Estimated GFR (Non- 122.4 BUN/Creatinine Ratio 14.5 10-20 Random Glucose 109 70-99 mg/dl Calcium Level 9.3 8.5-10.1 mg/dl Total Bilirubin 0.1 0.2-1 mg/dl Aspartate Amino Transf (AST/SGOT) 14 15-37 U/L Alanine Aminotransferase (ALT/SGPT) 51 12-78 U/L Alkaline Phosphatase 136 45-117 U/L Total Protein 6.9 6.4-8.2 gm/dl Albumin 3.6 3.4-5.0 gm/dl Globulin 3.3 2.5-4.0 gm/dl Albumin/Globulin Ratio 1.1 0.9-2 Lipase 90 73-393 U/L Diagnostic Radiology ABDOMEN AND PELVIS CT WITH IV CONTRAST CT DOSE: 442.82 mGy.cm HISTORY: Pain epigastric pain/ vomiting TECHNIQUE: Multiaxial CT images of the abdomen and pelvis were performed following the use of intravenous contrast. COMPARISON STUDY: None. FINDINGS: Lung bases are clear. Liver spleen and pancreas appear unremarkable. Probable mild edematous change about the gallbladder wall. Suggestion of slight periportal edema most likely secondary to the injection phase. Bowel pattern is nonobstructive. Normal appendix. No significant abdominal or pelvic adenopathy. Small bilateral ovarian follicular cysts. IMPRESSION: 1. Potential gallbladder wall edematous change the trace amount of pericholecystic fluid. 2. Right upper quadrant ultrasonography is suggested. 3. Small bilateral ovarian follicular cysts. Electronically signed by: Farzad Koo M.D. 10/15/2016 6:47 AM Dictated Date/Time: 10/15/2016 6:45 AM Impression Assessment and Plan acute cholecystitis Discussed findings of cholecystitis. Due to severity of symptoms she would like to proceed with laparoscopic cholecystectomy this morning. IV Cipro and Flagyl were started on admission this morning and given at approx 04:00. Advanced Directives Existing Living Will: No Existing Power of Curriculum Specialist: No VTE Prophylaxis VTE Risk Assessment Done? Y/N: Yes Risk Level: Low
[2016-10-15] MEDS ORDERED: SUCCINYLCHOLINE CHLORIDE 20 MG/ML 10 ML VIAL IV ONE (08:08)
[2016-10-15] MEDS ORDERED: PROMETHAZINE HCL INJ 6.25 MG in SODIUM CHLORIDE 0.9% 50ML 50 ML IV PRN (08:15)
[2016-10-15] MEDS ORDERED: ATROPINE SULFATE 0.1 MG/ML 5ML SYR IV PRN (08:15)
[2016-10-15] MEDS ORDERED: HYDROmorphone INJ 1 MG/ML SYR IV PRN (08:15)
[2016-10-15] MEDS ORDERED: EpHEDrine SULFATE INJ 50 MG/ML AMP IV PRN (08:15)
[2016-10-15] MEDS ORDERED: HYDROmorphone INJ 2 MG/ML SYR/VIAL ONE (08:35)
[2016-10-15] MEDS ORDERED: PROPOFOL IV EMULSION 10 MG/ML 100 ML VIAL IV ONE (09:05)
--- NOTE | 2016-10-15 09:12 | [facility] Operative Report ---
Operative Report Operative Date October 15, 2016. Pre-Operative Diagnosis Cholecystitis Post-Operative Diagnosis acute cholecystitis Procedure(s) Performed lap jade Surgeon Dr Hernandez Insurance Verification Representative Surgeon(s) Christiano Ya PA-C Estimated Blood Loss 10ML Findings acutely inflammed gallbladder Specimens A. Gallbladder Anesthesia get Complication(s) None Disposition Recovery Room / PACU I attest to the content of the Intraoperative Record and any orders documented therein. Any exceptions are noted below.
[2016-10-15] MEDS ORDERED: OXYCODONE/ACETAMINOPHEN 10/325MG TAB PO PRN (09:15)
[2016-10-15] MEDS: FENTANYL CITRATE INJ 50 MCG/1 ML 2 ML VIAL IV PRN ×4 (09:34→10:25)
[2016-10-15] MEDS ORDERED: PROPOFOL IV EMULSION 10 MG/ML 100 ML VIAL IV PRN (09:45)
--- NOTE | 2016-10-15 10:02 | OPERATIVE REPORT ---
DATE OF OPERATION: 10/15/2016 PREOPERATIVE DIAGNOSIS: Acute cholecystitis. POSTOPERATIVE DIAGNOSIS: Same. PROCEDURE: Laparoscopic cholecystectomy. SURGEON: Dr. Oral Hernandez. CORRECTIONAL TREATMENT SPECIALIST: Christiano Ya PA-C ESTIMATED BLOOD LOSS: Approximately 10 mL. COMPLICATIONS: No immediate. ANESTHESIA: General. The patient tolerated the procedure well. OPERATIVE NOTE: After informed consent was obtained, the patient was taken to the operating suite and placed in the supine position. After successful intubation, the abdomen was sterilely prepped and draped in the usual fashion. A periumbilical incision was made with an 11-blade scalpel and carried down through the soft tissue using electrocautery. The anterior rectus fascia was opened using electrocautery and two #0 Vicryl stay sutures were placed. Peritoneum was elevated using hemostats and incised under direct vision using Metzenbaum scissor. A finger sweep was performed. A 12-mm Sharif trocar was placed and the abdomen was insufflated to 18 mmHg. Laparoscope was inserted and the abdomen examined at 360 degrees. A subxiphoid 5-mm port and 2 right upper quadrant 5-mm ports were placed under direct vision. The patient was placed in reverse Trendelenburg position, slightly airplaned to the left. The gallbladder was in fact acutely inflamed with edematous wall. We were able to grasp it and elevate it superiorly and laterally. A [place] dissector was used to take down adhesions around the neck of the gallbladder. The cystic duct was identified and skeletonized. It was clipped 3 times proximally and once distally and transected with a laparoscopic scissor. In similar fashion, there was a lateral as well as anterior branch of the cystic artery. Both of these were skeletonized separately and clipped and divided. The gallbladder was removed from the gallbladder fossa intact with electrocautery. It was placed into an EndoCatch bag. Any small bleeding points in the gallbladder fossa were controlled using electrocautery. Thorough irrigation of the right upper quadrant was performed. At the end of the procedure, there was adequate hemostasis and no evidence of any bile leakage. Final irrigation was performed. A quick look around the abdomen showed no other gross abnormalities. The trocars were all removed and the abdomen was desufflated. The fascia of the camera port was closed using 0 Vicryl in a [id number] fashion. The wounds were all irrigated and closed using 4-0 Monocryl. Marcaine was injected around them for postoperative analgesia and skin glue used as a dressing. The patient was awakened, extubated, and transferred to recovery in stable condition. I attest to the content of the Intraoperative Record and any orders documented therein. Any exceptio ns are noted below.
--- NOTE | 2016-10-15 10:51 | Anesthesiology Progress Note ---
Anesthesia Post Op Note Date & Time October 15, 2016 at 10:48 Vital Signs Pain Intensity: 4 Vital Signs Past 12 Hours Date Time Temp Pulse Resp B/P Pulse Ox O2 Delivery O2 Flow Rate FiO2 10/15/16 10:45 106 16 143/98 100 Nasal Cannula 3 10/15/16 10:35 101 16 128/96 100 Nasal Cannula 3 10/15/16 10:25 81 16 139/98 100 Nasal Cannula 3 10/15/16 10:15 78 16 133/94 100 Mask 5 10/15/16 10:05 99 16 138/97 100 Mask 10 10/15/16 09:55 103 16 138/97 100 Mechanical Ventilator 10/15/16 09:45 113 16 130/93 100 Mechanical Ventilator 10/15/16 09:35 126 16 166/136 100 Mechanical Ventilator 10/15/16 09:25 115 16 142/102 100 Mechanical Ventilator 10/15/16 09:15 130 16 138/103 100 Mechanical Ventilator 10/15/16 09:12 50 10/15/16 09:11 36.5 132 16 139/103 100 Mechanical Ventilator 10/15/16 06:53 36.9 92 20 150/97 95 Room Air 10/15/16 03:10 Room Air 10/15/16 03:09 36.5 61 16 150/95 98 Room Air 10/15/16 02:52 62 18 138/82 96 10/15/16 02:15 59 18 141/91 98 Room Air 10/15/16 00:34 78 18 133/93 96 Room Air 10/15/16 00:06 36.6 78 20 156/98 96 Room Air Notes Mental Status: alert / awake / arousable, participated in evaluation Pt Amnestic to Procedure: Yes Nausea / Vomiting: adequately controlled Pain: adequately controlled Airway Patency, RR, SpO2: stable & adequate BP & HR: stable & adequate Hydration State: stable & adequate Anesthetic Complications: no major complications apparent Patient was given 30mg of rocuronium during case after verification of full recovery from succinylcholine. Despite sufficient time to recover from the NDNMB, she had only post tetanic twitches at the end of the procedure. The patient was sedated with propofol and a couple bolus doses of fentanyl and brought to PACU for mechanical ventilation. After approximately 40 minutes in pacu, the patient had 4 twitches. She was reversed with 5mg of neostigmine/ 0.6mg of glycopyrollate and the sedation was discontinued. She met ventilator weaning criteria and was extubated. No pacu adverse events noted.
[2016-10-15] MEDS: HYDROmorphone INJ 1 MG/ML SYR IV PRN ×2 (12:09→14:42)
[2016-10-15 12:34] LABS: URINE APPEARANCE CLEAR (CLEAR); URINE BILIRUBIN NEG (NEG); URINE COLOR YELLOW; URINE EPITHELIAL CELL AUTO >30 /lpf (0-5); URINE NITRITE NEG (NEG); URINE SPECIFIC GRAVITY 1.009 (1.000-1.030); UROBILINOGEN NEG (NEG); ZZUR CULT IF INDIC CLEAN CATCH NO
[2016-10-15 12:41] LABS: MANUAL MICROSCOPIC REQUIRED? NO; REVIEW REQ? NO
--- NOTE | 2016-10-15 14:11 | Discharge Instructions ---
Discharge Instructions Date of Service October 15, 2016. Admission Reason for Admission: Cholecystitis Discharge Discharge Diagnosis / Problem: laparoscopic cholecystectomy Discharge Goals Goal(s): Decrease discomfort Activity Recommendations Activity Limitations: as noted below Lifting Limitations: no more than 10 pounds Shower/Bathe: no limitations Driving or Machine Use: 1 week . Instructions / Follow-Up Instructions / Follow-Up Dr. Hernandez in 2 weeks on October 29 at 10:30 [facility], call [phone] for any questions or concerns Current Hospital Diet Patient's current hospital diet: Clear Liquid Diet Discharge Diet Recommended Diet: Regular Diet Procedures Procedures Performed: Laparoscopic Cholecystectomy Pending Studies Studies pending at discharge: no Medical Emergencies . Who to Call and When: Medical Emergencies: If at any time you feel your situation is an emergency, please call 911 immediately. . Non-Emergent Contact Non-Emergency issues call your: Surgeon Call Non-Emergent contact if: you have a fever, temperature is above 101.5, your pain is not controlled, wound has increased drainage, wound has increased redness . "Provider Documentation" section prepared by Christiano Ya. . VTE Core Measure Inpt VTE Proph given/why not?: SCD's
[2016-10-15] MEDS ORDERED: OXYC-106 PO (14:53)
--- NOTE | 2016-10-18 10:39 | DISCHARGE SUMMARY ---
PRIMARY DISCHARGE DIAGNOSIS: Acute cholecystitis. PROCEDURE PERFORMED: Laparoscopic cholecystectomy. HOSPITAL COURSE: The patient is a 25-year-old female who presented to the Emergency Department overnight complaining of epigastric pain, nausea and vomiting. Her white count was 14,000. CT showed pericholecystic fluid and wall edema. She was admitted to the surgery service, started on IV antibiotics, and taken to the operating room later in the morning for laparoscopic cholecystectomy. Procedure was well tolerated. She was returned to the surgical floor. By the evening, she was tolerating diet and oral analgesics. She was stable for discharge. DISCHARGE INSTRUCTIONS: Discharge home. Follow up with Dr. Hernandez in 2 weeks. DISCHARGE MEDICATIONS: Percocet 10/325 one tablet every 4 hours as needed. Continue home Zoloft 25 mg daily and Lexapro 5 mg daily.
== END 2016-10-15 18:50 | disposition home or self-care (01) ==
LOC: ENRESERVTM → ENRESERVDT → C.EDB 21:49 → C.MSN 10-15 02:32
PROVIDERS: ADMIT Surgery; ATTEND Surgery
DX: K81.0 Acute cholecystitis (principal); J45.909 Unspecified asthma, uncomplicated; F17.210 Nicotine dependence, cigarettes, uncomplicated

== ENCOUNTER 2016-11-18 22:32 | Emergency (ER) | payer OTHER ==
[~2016-11-18] VITALS: Ht 147.3 cm; Wt 50.7 kg
[~2016-11-18 22:32] MED LIST changes: +OXYC-106 PO
[2016-11-18 22:35] VITALS: TEMP 36.6; Ht 147.3 cm; Wt 50.7 kg
[2016-11-18] MEDS ORDERED: SODIUM CHLORIDE 0.9% 1000ML 1,000 ML IV ONE (23:15)
[2016-11-18] MEDS ORDERED: CLINDAMYCIN IV 900 MG in DEXTROSE 5% ADD-VANTAGE 100ML 100 ML IV ONE (23:15)
[2016-11-19 00:01] LABS: BASO % 0.2 %; BASO ABS # 0.03 K/uL (0-0.2); COMPLETE YES; EOS % 1.2 %; HEMATOCRIT 41.6 % (37-47); IG% 0.1 %; LYMPH % 14.1 %; LYMPH ABS # 1.89 K/uL (1.2-3.4); MEAN CELL VOLUME 91.4 fL (80-100); MEAN CORPUSCULAR HEMOGLOBIN 30.3 pg (25-34); MEAN CORPUSCULAR HGB CONC 33.2 g/dl (32-36); MEAN PLATELET VOLUME 8.6 fL (7.4-10.4); MONO % 4.1 %; NEUT % 80.3 %; PLATELET COUNT 355 K/uL (130-400); RED BLOOD COUNT 4.55 M/uL (4.2-5.4); WHITE BLOOD COUNT 13.44 K/uL (4.8-10.8)
[2016-11-19 00:13] LABS: MANUAL MICROSCOPIC REQUIRED? NO; REVIEW REQ? NO; URINE APPEARANCE TURBID (CLEAR); URINE BILIRUBIN NEG (NEG); URINE COLOR YELLOW; URINE EPITHELIAL CELL AUTO >30 /lpf (0-5); URINE NITRITE NEG (NEG); URINE SPECIFIC GRAVITY 1.019 (1.000-1.030); UROBILINOGEN NEG (NEG); ZZUR CULT IF INDIC CLEAN CATCH YES
[2016-11-19 00:19] LABS: BUN/CREATININE RATIO 14.2 (10-20); CALCIUM 10.4 mg/dl (8.5-10.1); CREATININE 0.66 mg/dl (0.60-1.20); POTASSIUM 3.7 mmol/L (3.5-5.1)
[2016-11-19 00:24] LABS: ALB/GLOB RATIO 0.8 (0.9-2)
[2016-11-19 00:49] LABS: BENZODIAZEPINE, URINE NEG (NEG); COCAINE,URINE NEG (NEG); PHENCYCLIDINE, URINE NEG (NEG)
[2016-11-19] MEDS ORDERED: KETOROLAC TROMETHAMINE 30 MG/ML VIAL IV STA (01:28)
[2016-11-19 01:47] VITALS: BP 119/86; PULSE 103; O2SAT 98
[2016-11-19] MEDS ORDERED: CLIN300C2 PO (01:56)
--- NOTE | 2016-11-19 03:32 | EMERGENCY ROOM VISIT NOTE ---
History First contact with patient: 22:55 Chief Complaint: ARM PAIN Stated Complaint: RT ARM PAIN W/SWELLING History of Present Illness The patient is a 25 year old female who presents to the Emergency Room with complaints of pain and swelling of her right arm. The patient states that 6 days ago she injected heroin into her right antecubital space, and is concerned that she may have broken off the needle or possibly missed her vein. The patient has not had fever at home, but has difficulty flexing and extending at the elbow. She does not have numbness or paresthesias. She rates her discomfort a 5/10 that has been worsening over the past 24 hours. Review of Systems More than 10 systems were reviewed and otherwise negative with the exception of history of present illness. Past Medical/Surgical History Medical Problems: (1) ASTHMA, UNSPECIFIED, W (ACUTE) EXACERBATION (2) Precipitous delivery, delivered (current hospitalization) (3) labor (4) labor in third trimester Surgical Problems: (1) Previous section Family History FH: cholecystectomy Social History Smoking Status: Current Every Day Smoker Alcohol Use: none Drug Use: heroin, marijuana, other Marital Status: single Occupation Status: unemployed Current/Historical Medications Scheduled Clindamycin Hcl (Cleocin), 300 MG PO QID Allergies Coded Allergies: Sulfa Antibiotics (Verified Allergy, Unknown, Unknown reaction, 11/19/16) Physical Exam Vital Signs Date Time Temp Pulse Resp B/P (MAP) Pulse Ox O2 Delivery O2 Flow Rate FiO2 11/19/16 01:47 103 16 119/86 98 Room Air 11/19/16 00:22 114 11/19/16 00:15 110 14 123/83 100 Room Air 11/18/16 22:35 36.6 117 16 127/81 98 Room Air Pain Rating (0-10): 6.0 Physical Exam VITALS: Vitals are noted on the nurse's note and reviewed by myself. Vital signs stable. GENERAL: Well-developed, well-nourished, white female, who is in no acute distress and resting comfortably. Patient is cooperative with the examination. HEAD: Normocephalic atraumatic. HEART: Regular rate and rhythm without murmurs gallops or rubs. LUNGS: Clear to auscultation bilaterally without wheezes, rales or rhonchi. No retractions or accessory muscle use. MUSCULOSKELETAL: Obvious erythema and edema over the anterior aspect of the right antecubital fossa. This area is tender on palpation. The patient is with decreased ability to flex and extend at this joint. Neurovascular status is intact in the distal extremity. No lymphangitic streaking. No obvious abscess. NEURO: Patient was alert and oriented to person place and time. CN II through XII grossly intact. Medical Decision & Procedures ER Provider Diagnostic Interpretation: Preliminary Findings Only See Final Report For Complete Findings US VENOUS RIGHT UPPER EXTREMITY: Exam limited due to difficulty positioning patient. No evidence of DVT in the right upper extremity. Soft tissue edema in the right antecubital fossa. Laboratory Results 11/18/16 23:45 Red Blood Count 4.55, Mean Corpuscular Volume 91.4, Mean Corpuscular Hemoglobin 30.3, Mean Corpuscular Hemoglobin Concent 33.2, Mean Platelet Volume 8.6, Neutrophils (%) (Auto) 80.3, Lymphocytes (%) (Auto) 14.1, Monocytes (%) (Auto) 4.1, Eosinophils (%) (Auto) 1.2, Basophils (%) (Auto) 0.2, Neutrophils # (Auto) 10.79, Lymphocytes # (Auto) 1.89, Monocytes # (Auto) 0.55, Eosinophils # (Auto) 0.16, Basophils # (Auto) 0.03 11/18/16 23:45 Test 11/18/16 23:45 11/18/16 23:53 White Blood Count 13.44 K/uL (4.8-10.8) Red Blood Count 4.55 M/uL (4.2-5.4) Hemoglobin 13.8 g/dL (12.0-16.0) Hematocrit 41.6 % (37-47) Mean Corpuscular Volume 91.4 fL (80-100) Mean Corpuscular Hemoglobin 30.3 pg (25-34) Mean Corpuscular Hemoglobin Concent 33.2 g/dl (32-36) Platelet Count 355 K/uL (130-400) Mean Platelet Volume 8.6 fL (7.4-10.4) Neutrophils (%) (Auto) 80.3 % Lymphocytes (%) (Auto) 14.1 % Monocytes (%) (Auto) 4.1 % Eosinophils (%) (Auto) 1.2 % Basophils (%) (Auto) 0.2 % Neutrophils # (Auto) 10.79 K/uL (1.4-6.5) Lymphocytes # (Auto) 1.89 K/uL (1.2-3.4) Monocytes # (Auto) 0.55 K/uL (0.11-0.59) Eosinophils # (Auto) 0.16 K/uL (0-0.5) Basophils # (Auto) 0.03 K/uL (0-0.2) RDW Standard Deviation 45.8 fL (36.4-46.3) RDW Coefficient of Variation 13.9 % (11.5-14.5) Immature Granulocyte % (Auto) 0.1 % Immature Granulocyte # (Auto) 0.02 K/uL (0.00-0.02) Urine Color YELLOW Urine Appearance TURBID (CLEAR) Urine pH 8.0 (4.5-7.5) Urine Specific [place] 1.019 (1.000-1.030) Urine Protein NEG (NEG) Urine Glucose (UA) NEG (NEG) Urine Ketones NEG (NEG) Urine Occult Blood NEG (NEG) Urine Nitrite NEG (NEG) Urine Bilirubin NEG (NEG) Urine Urobilinogen NEG (NEG) Urine Leukocyte Esterase NEG (NEG) Urine WBC (Auto) 1-5 /hpf (0-5) Urine RBC (Auto) 5-10 /hpf (0-4) Urine Hyaline Casts (Auto) 1-5 /lpf (0-5) Urine Epithelial Cells (Auto) >30 /lpf (0-5) Urine Bacteria (Auto) 1+ (NEG) Urine Test NEG (NEG) Anion Gap 5.0 mmol/L (3-11) Est Creatinine Clear Calc Drug Dose 93.0 ml/min Estimated GFR () 143.3 Estimated GFR (Non- 123.6 BUN/Creatinine Ratio 14.2 (10-20) Calcium Level 10.4 mg/dl (8.5-10.1) Total Bilirubin 0.2 mg/dl (0.2-1) Aspartate Amino Transf (AST/SGOT) 12 U/L (15-37) Alanine Aminotransferase (ALT/SGPT) 21 U/L (12-78) Alkaline Phosphatase 131 U/L (45-117) Total Creatine Kinase 55 U/L (26-192) Creatine Kinase MB 1.1 ng/ml (0.5-3.6) Creatine Kinase MB Ratio 2.0 (0-3.0) Total Protein 8.3 gm/dl (6.4-8.2) Albumin 3.8 gm/dl (3.4-5.0) Globulin 4.5 gm/dl (2.5-4.0) Albumin/Globulin Ratio 0.8 (0.9-2) Urine Opiates Screen POS (NEG) Urine Methadone, Qualitative NEG (NEG) Urine Barbiturates NEG (NEG) Urine Phencyclidine (PCP) Level NEG (NEG) Ur Amphetamine/Methamphetamine POS (NEG) MDMA (Ecstasy) Screen NEG (NEG) Urine Benzodiazepines Screen NEG (NEG) Urine Cocaine Metabolite NEG (NEG) Urine Marijuana (THC) POS (NEG) Bedside Lactic Acid Venous 1.20 mmol/L (0.90-1.70) Bedside Troponin I 0.000 ng/ml (0-0.045) Medications Administered Medications (Trade) Dose Ordered Sig/Juan Route Start Time Stop Time Status Last Admin Dose Admin Sodium Chloride 1,000 ml @ 999 mls/hr Q1H1M ONCE IV 11/18/16 23:15 11/19/16 00:15 DC 11/19/16 00:15 999 MLS/HR Clindamycin Phosphate 900 mg/ Dextrose 106 ml @ 100 mls/hr ONE ONCE IV 11/18/16 23:15 11/19/16 00:18 DC 11/19/16 00:16 100 MLS/HR Ketorolac Tromethamine (Toradol Inj) 30 mg NOW STAT IV 11/19/16 01:28 11/19/16 01:29 DC 11/19/16 01:46 30 MG ED Course Physical exam and history were performed. Nursing notes and EMR were reviewed. Patient appears to have infection of the right antecubital fossa after IV drug use several days ago. The patient does not have a fever. IV access was established and labs were obtained. Blood cultures were gathered. The patient was hydrated with normal saline and given IV clindamycin. Out of concern for possible metal foreign body x-ray was performed. To rule out abscess ultrasound was also performed. The patient's blood work is as above and was reviewed. She does have an elevated white blood cell count of 13,000. She does not have a significant anemia or gross electrolyte imbalance. Lactic acid is negative. Blood cultures are pending. X-ray does not appear to show metal foreign body, and ultrasound is without obvious abscess or clot. I discussed options of care with the patient. She is an IV drug abuser, and I did offer rehabilitation services through case management. The patient declined this. She will be given a course of clindamycin for her symptoms. She was thoroughly educated that her symptoms could worsen and this could be very serious. She needs to follow with her primary care physician on a very short interval for recheck. She was otherwise invited back to the ER with any new, worsening, or concerning symptoms. The chart was completed utilizing [employer] Speech Voice Recognition Software. Grammatical errors, random word insertions, pronoun errors, and incomplete sentences are an occasional consequence of this system due to software limitations, ambient noise, and hardware issues. Any formal questions or concerns about the content, text, or information contained within the body of this dictation should be directly addressed to the provider for clarification. . Medical Decision Differential diagnosis: Etiologies such as cellulitis, abscess, MRSA infection, DVT, necrotizing fasciitis, dermatitis, drug eruption, as well as others were entertained.. Impression Primary Impression: Cellulitis of right arm Additional Impression: IV drug abuse Departure Information Dispostion Home / Self-Care Condition GOOD Prescriptions Clindamycin Hcl (CLEOCIN) 300 Mg Cap 300 MG PO QID for 10 Days, #40 CAP Prov: Sumit Vigil PA-C 11/19/16 Forms HOME CARE DOCUMENTATION FORM, IMPORTANT VISIT INFORMATION Patient Instructions My [facility] Additional Instructions You were seen and evaluated today on an emergency basis only. This is not a substitute for, or an effort to provide, complete comprehensive medical care. It is not possible to recognize and treat all injuries or illnesses in a single emergency department visit. For this reason it is recommended that you followup with your primary care physician in 12-36 hours for recheck of your condition. Take clindamycin 300 mg 4 times daily for the next 10 days. This medication can cause an upset stomach. We recommended you eat yogurt while taking this medication. For baseline pain relief you may alternate ibuprofen and acetaminophen every 4 hours for pain control. Take 600 mg ibuprofen (Advil) and then 4 hours later take 1000 mg acetaminophen (Tylenol). Do not take more than 3000 mg acetaminophen in a single day. You are welcome to return to the emergency department anytime with new, worsening, or concerning symptoms. Problem Qualifiers
--- NOTE | 2016-11-19 06:43 | DIAGNOSTIC IMAGING REPORT ---
RIGHT ELBOW 2 VIEWS CLINICAL HISTORY: Right elbow pain COMPARISON: None. DISCUSSION: No fractures or dislocations are visualized. No radiopaque foreign bodies are evident. IMPRESSION: No fractures, dislocations, or foreign bodies are visualized. Electronically signed by: Keagan Velasco M.D. 11/19/2016 6:42 AM Dictated Date/Time: 11/19/2016 6:41 AM
--- NOTE | 2016-11-19 06:47 | DIAGNOSTIC IMAGING REPORT ---
RIGHT UPPER EXTREMITY VENOUS DOPPLER CLINICAL HISTORY: Right AC swelling after heroin injection. ?Abscess vs other. COMPARISON STUDY: No previous studies for comparison. FINDINGS: No deep venous thrombus was identified within the right upper extremity. Edema within the right antecubital fossa was noted. There is no fluid collection to suggest an abscess. IMPRESSION: 1. No evidence of deep venous thrombus within the right upper extremity. 2. Edema within the right antecubital fossa. No well-defined fluid collection to suggest abscess. Electronically signed by: Sanjiv Rico M.D. 11/19/2016 6:45 AM Dictated Date/Time: 11/19/2016 6:44 AM
[2016-11-21 11:30] LABS: COD UR 290 NG/ML (CUTOFF=50); HYDROCOD UR NEGATIVE NG/ML (CUTOFF=50); HYDROMOR UR 196 NG/ML (CUTOFF=50); MORPHINE UR >20000 NG/ML (CUTOFF=50); NORHYDROCODONE CONF UR NEGATIVE NG/ML (CUTOFF=50); OXYMORPH UR NEGATIVE NG/ML (CUTOFF=50)
== END 2016-11-19 02:30 | disposition home or self-care (01) ==
LOC: C.EDB 22:33
DX: L03.113 Cellulitis of right upper limb (principal); F11.10 Opioid abuse, uncomplicated; J45.909 Unspecified asthma, uncomplicated; F17.210 Nicotine dependence, cigarettes, uncomplicated

== ENCOUNTER 2017-01-18 21:26 | Emergency (ER) | payer OTHER ==
[2017-01-18 21:40] VITALS: Ht 142.2 cm
[2017-01-18 21:53] VITALS: TEMP 36.7
[2017-01-18 22:25] LABS: BASO % 0.3 %; BASO ABS # 0.03 K/uL (0-0.2); COMPLETE YES; EOS % 1.5 %; HEMATOCRIT 39.3 % (37-47); IG% 0.2 %; LYMPH % 42.2 %; LYMPH ABS # 3.77 K/uL (1.2-3.4); MEAN CELL VOLUME 90.1 fL (80-100); MEAN CORPUSCULAR HEMOGLOBIN 29.1 pg (25-34); MEAN CORPUSCULAR HGB CONC 32.3 g/dl (32-36); MEAN PLATELET VOLUME 9.2 fL (7.4-10.4); MONO % 6.2 %; NEUT % 49.6 %; PLATELET COUNT 290 K/uL (130-400); RED BLOOD COUNT 4.36 M/uL (4.2-5.4); WHITE BLOOD COUNT 8.94 K/uL (4.8-10.8)
[2017-01-18 22:33] LABS: ALT/SGPT 20 U/L (12-78); BLOOD UREA NITROGEN 17 mg/dl (7-18); BUN/CREATININE RATIO 16.8 (10-20); CALCIUM 9.7 mg/dl (8.5-10.1); CARBON DIOXIDE 27 mmol/L (21-32); CHLORIDE 109 mmol/L (98-107); CREATININE 0.99 mg/dl (0.60-1.20); GLUCOSE 218 mg/dl (70-99); POTASSIUM 3.8 mmol/L (3.5-5.1); SODIUM 142 mmol/L (136-145)
[2017-01-18 22:35] LABS: ACETAMINOPHEN < 2 ug/ml (10-30)
[2017-01-18 22:38] LABS: ALB/GLOB RATIO 1.1 (0.9-2); ALKALINE PHOSPHATASE 76 U/L (45-117); AST/SGOT 16 U/L (15-37)
--- NOTE | 2017-01-18 22:39 | DIAGNOSTIC IMAGING REPORT ---
CHEST ONE VIEW PORTABLE CLINICAL HISTORY: Overdose COMPARISON STUDY: 10/13/2016 FINDINGS: The cardiac and mediastinal contours are normal. There is no evidence of focal pulmonary consolidation. There is no evidence of failure. No pleural effusions are visualized.[ IMPRESSION: No active disease in the chest. Electronically signed by: Keagan eVlasco M.D. 01/18/2017 10:38 PM Dictated Date/Time: 01/18/2017 10:38 PM
[2017-01-18 23:53] VITALS: BP 116/79; PULSE 102; O2SAT 96
--- NOTE | 2017-01-19 05:11 | EMERGENCY ROOM VISIT NOTE ---
History First contact with patient: 21:44 Chief Complaint: OVERDOSE (ACCIDENTAL) Stated Complaint: OPIATE OVERDOSE Nursing Triage Summary: heroin use History of Present Illness The patient is a 26 year old female who presents to the Emergency Room by ambulance for evaluation of an accidental heroin overdose. The patient arrives via ambulance and with police custody. The history is primarily provided by EMS and police as the patient is not cooperative. Evidently the patient was found unresponsive by an ex-boyfriend. She was found on the ground next to her bed with a needle in her arm. The patient is a known heroin abuser, and was not responsive to stimuli. 911 was contacted, and police arrived on scene first. The patient had a slow respiratory rate and was not responsive to sternal rub. The patient was given a dose of Narcan by the first responding officer, and this very rapidly improved the patient's symptoms. An IV was established by EMS, and now the patient is here in the department for evaluation. She reportedly had 6 bags of heroin in her purse as well as other drug paraphernalia. The patient denies that she was doing drugs this evening, and requested to sign out AMA. She states "the last hospital I was at for this let me go within 10 minutes". The patient does not report pain or other complaint. She rates her discomfort a 0/10 and states that she "has things to do". Source of History: police, EMS Review of Systems More than 10 systems were reviewed and otherwise negative with the exception of history of present illness. Past Medical/Surgical History Medical Problems: (1) ASTHMA, UNSPECIFIED, W (ACUTE) EXACERBATION (2) Precipitous delivery, delivered (current hospitalization) (3) labor (4) labor in third trimester Surgical Problems: (1) Previous section Family History FH: cholecystectomy Social History Smoking Status: Current Every Day Smoker Alcohol Use: none Drug Use: heroin, marijuana, other Marital Status: single Occupation Status: unemployed Current/Historical Medications No Active Prescriptions or Reported Meds Physical Exam Vital Signs Date Time Temp Pulse Resp B/P (MAP) Pulse Ox O2 Delivery O2 Flow Rate FiO2 01/18/17 23:53 102 20 116/79 96 01/18/17 23:33 104 22 130/72 95 Room Air 01/18/17 22:31 112 20 121/91 98 Room Air 01/18/17 21:53 36.7 01/18/17 21:44 Room Air 01/18/17 21:40 123 22 114/87 99 Room Air Pain Rating (0-10): 0 Physical Exam VITALS: Vitals are noted on the nurse's note and reviewed by myself. Vital signs stable. GENERAL: Well-developed, well-nourished, white female who is agitated and pacing throughout her emergency department room. She is not cooperative but appears to be answering questions appropriately. HEART: Regular rate and rhythm without murmurs gallops or rubs. LUNGS: Clear to auscultation bilaterally without wheezes, rales or rhonchi. No retractions or accessory muscle use. ABDOMEN: Positive normal bowel sounds x 4. Soft, nontender, without masses or organomegaly. No guarding or rebound tenderness. MUSCULOSKELETAL: No muscle atrophy, erythema, or edema noted. Full range of motion without joint tenderness in all extremities. SKIN: The skin was with track nieves throughout the anterior antecubital fossas Medical Decision & Procedures ER Provider Diagnostic Interpretation: CHEST ONE VIEW PORTABLE CLINICAL HISTORY: Overdose COMPARISON STUDY: 10/13/2016 FINDINGS: The cardiac and mediastinal contours are normal. There is no evidence of focal pulmonary consolidation. There is no evidence of failure. No pleural effusions are visualized.[ IMPRESSION: No active disease in the chest. Laboratory Results 01/18/17 21:17 Red Blood Count 4.36, Mean Corpuscular Volume 90.1, Mean Corpuscular Hemoglobin 29.1, Mean Corpuscular Hemoglobin Concent 32.3, Mean Platelet Volume 9.2, Neutrophils (%) (Auto) 49.6, Lymphocytes (%) (Auto) 42.2, Monocytes (%) (Auto) 6.2, Eosinophils (%) (Auto) 1.5, Basophils (%) (Auto) 0.3, Neutrophils # (Auto) 4.44, Lymphocytes # (Auto) 3.77, Monocytes # (Auto) 0.55, Eosinophils # (Auto) 0.13, Basophils # (Auto) 0.03 01/18/17 21:17 Test 01/18/17 21:17 White Blood Count 8.94 K/uL (4.8-10.8) Red Blood Count 4.36 M/uL (4.2-5.4) Hemoglobin 12.7 g/dL (12.0-16.0) Hematocrit 39.3 % (37-47) Mean Corpuscular Volume 90.1 fL (80-100) Mean Corpuscular Hemoglobin 29.1 pg (25-34) Mean Corpuscular Hemoglobin Concent 32.3 g/dl (32-36) Platelet Count 290 K/uL (130-400) Mean Platelet Volume 9.2 fL (7.4-10.4) Neutrophils (%) (Auto) 49.6 % Lymphocytes (%) (Auto) 42.2 % Monocytes (%) (Auto) 6.2 % Eosinophils (%) (Auto) 1.5 % Basophils (%) (Auto) 0.3 % Neutrophils # (Auto) 4.44 K/uL (1.4-6.5) Lymphocytes # (Auto) 3.77 K/uL (1.2-3.4) Monocytes # (Auto) 0.55 K/uL (0.11-0.59) Eosinophils # (Auto) 0.13 K/uL (0-0.5) Basophils # (Auto) 0.03 K/uL (0-0.2) RDW Standard Deviation 45.7 fL (36.4-46.3) RDW Coefficient of Variation 13.9 % (11.5-14.5) Immature Granulocyte % (Auto) 0.2 % Immature Granulocyte # (Auto) 0.02 K/uL (0.00-0.02) Anion Gap 6.0 mmol/L (3-11) Estimated GFR () 91.8 Estimated GFR (Non- 79.2 BUN/Creatinine Ratio 16.8 (10-20) Calcium Level 9.7 mg/dl (8.5-10.1) Total Bilirubin 0.2 mg/dl (0.2-1) Aspartate Amino Transf (AST/SGOT) 16 U/L (15-37) Alanine Aminotransferase (ALT/SGPT) 20 U/L (12-78) Alkaline Phosphatase 76 U/L (45-117) Troponin I < 0.015 ng/ml (0-0.045) Total Protein 7.3 gm/dl (6.4-8.2) Albumin 3.8 gm/dl (3.4-5.0) Globulin 3.5 gm/dl (2.5-4.0) Albumin/Globulin Ratio 1.1 (0.9-2) Salicylates Level < 1.7 mg/dl (2.8-20) Acetaminophen Level < 2 ug/ml (10-30) ED Course Physical exam and history were performed. Nursing notes, EMR, and Medication List were personally reviewed. Patient appears to have overdosed on heroin this evening. She was given Narcan about 40 minutes prior to arrival and this very rapidly returned her to her normal baseline. The patient is a very agitated and is requesting to sign out AGAINST MEDICAL ADVICE. I explained to the patient that she was not medically cleared and would require additional evaluation as she was brought in by police and EMS for her symptoms. I was able to verbally de-escalate the patient, and she did consent to a basic evaluation. She did refuse to provide a urine. The patient's blood work is as above and was reviewed. She does not have a significantly elevated white blood cell count, worsening anemia, bandemia, or significant electrolyte imbalance. Troponin 1 is negative. Chest x-ray does not show evidence of acute aspiration or other findings. The patient remained in stable condition throughout her emergency department stay. She remained in the emergency department for roughly 2-1/2 hours, which [address] the timing of her Narcan dose greater than 3 hours ago. This is roughly 3 half-life's away from the Narcan, and she does not appear to show recurrent overdose symptoms. The patient will be given information through case management to assist with her drug use/addiction problems. We were provided the warrant from [employer] to hold the patient in the ER. Evidently she has multiple warrants out for her arrest, and she will be discharged into police custody. The chart was completed utilizing [email or web address] Speech Voice Recognition Software. Grammatical errors, random word insertions, pronoun errors, and incomplete sentences are an occasional consequence of this system due to software limitations, ambient noise, and hardware issues. Any formal questions or concerns about the content, text, or information contained within the body of this dictation should be directly addressed to the provider for clarification. . Medical Decision Differential diagnosis: Etiologies such as metabolic, infection, hypoglycemia, electrolyte abnormalities , cardiac sources, intracerebral event, toxicologic, neurologic, as well as others were entertained. Impression Primary Impression: Heroin overdose Departure Information Dispostion Other (Custody of [employer]) Condition GOOD Prescriptions No Active Prescriptions or Reported Meds Referrals No Doctor, Assigned (PCP) Forms HOME CARE DOCUMENTATION FORM, IMPORTANT VISIT INFORMATION Patient Instructions My [facility], ED Narcotic Abuse Additional Instructions You were seen and evaluated today on an emergency basis only. This is not a substitute for, or an effort to provide, complete comprehensive medical care. It is not possible to recognize and treat all injuries or illnesses in a single emergency department visit. For this reason it is recommended that you followup with your primary care physician this week for ongoing care and evaluation. You have issues with Heroin and opioid addiction. There are services available locally to help you. Please review the information that we have provided as this will help lead to recovery. Return to the emergency department anytime with new, worsening, or concerning symptoms.
== END 2017-01-18 23:54 | disposition other institution (70) ==
LOC: EDBD 21:26 → C.EDB 21:28
DX: T40.1X1A Poisoning by heroin, accidental (unintentional), initial encounter (principal); J45.909 Unspecified asthma, uncomplicated; F17.200 Nicotine dependence, unspecified, uncomplicated; F11.20 Opioid dependence, uncomplicated; F12.90 Cannabis use, unspecified, uncomplicated